=== PATIENT | male | born 1955 | race Caucasian/White ===

== ENCOUNTER → 2024-06-06 | Outpatient (CLI) | payer MEDICARE, BC | LOC: RAD 11:36 | DX: M77.8 Other enthesopathies, not elsewhere classified (principal) ==

== ENCOUNTER 2024-06-13 08:00 | Outpatient (RCR) | payer MEDICARE, BC | END 2024-06-22 | disposition home or self-care (01) | LOC: PT | DX: G89.29 Other chronic pain (principal); M79.671 Pain in right foot ==